=== PATIENT | male | born 1995 | race Caucasian/White ===

== ENCOUNTER 2022-10-24 09:03 | Emergency (ER) | payer OTHER, BC, SELFPAY ==
--- NOTE | 2022-10-24 09:28 | ED.WOUNDLAC ---
HPI - Wound/Laceration General Chief Complaint: Wound/Laceration Stated Complaint: head laceration Time Seen by Provider: 10/24/22 09:28 Source: patient Mode of arrival: ambulatory Limitations: no limitations History of Present Illness HPI narrative: Nehemiah is a 27-year-old male patient presenting to the clinic today with complaints of a head laceration. 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 Has a 2 cm laceration to the right mid scalp. He denies losing consciousness or any neck pain. Does have slight headache rates it about a 2-3 out of 10. Denies any dizziness, visual changes, or nausea/vomiting. Related Data Allergies Allergy/AdvReac Type Severity Reaction Status Date / Time No Known Allergies Allergy Verified 10/24/22 09:39 Review of Systems Review of Systems: Pertinent positives per HPI. Patient denies any fever, chills, rash, headache, visual changes, dizziness, cough, runny nose, sore throat, shortness of breath, chest pain, palpitations, nausea, vomiting, diarrhea, constipation, abdominal pain, or any urinary issues. PMFSH Comments At the time of my signature, I reviewed and agree with the nursing past medical, surgical, social, and family history. There is no relevant family history pertinent to the patient complaint. Exam Narrative: General: Well-developed, well nourished, in no apparent distress Head: Normocephalic, 2 cm gaped laceration to the right front mid scalp Eyes: Pupils equally round and reactive to light bilaterally, EOM intact, sclera and conjunctive clear, no discharge, lids normal Ears: TMs intact and clear, ear canals clear, no drainage, grossly hearing normal. Nose: Nares patent, no discharge, no inflammation, no sinus tenderness. Mouth: Oropharynx without lesions or masses, good dentition, MMM. Neck: Supple, trachea midline, no enlargement of anterior or posterior cervical nodes, no thyroid masses or goiter palpable. Cardio: Regular rate and rhythm, s1 and s2 normal, no murmur appreciated. Resp: Clear to auscultation bilaterally anteriorly and posteriorly, no rhonchi, rales, wheezing or rubs Course Course Emergency Course: Portions of this record may have been created with voice recognition software. Level of Care: Express Care Visit Vital Signs Vital signs: Vital signs reviewed Procedures Laceration Laceration 1: Date: 10/24/22 Site: scalp Side (If applicable): right Size (cm): 2 Description: linear Depth: simple, single layer Pre-repair: wound explored and irrigated ====== Skin Level ====== Skin layer closed with: marco a Number of sutures: 4 ====== Subcutaneous Layer ====== ====== Muscle Layer ====== ====== Tendon Layer ====== Dressing: Verbal consent obtained for laceration repair. Risk and benefits explained and patient voiced understanding. Area was cleansed with derma wash and 4 marco a placed bringing wound edges together well approximated. Patient tolerated procedure well. Triple antibiotic ointment was applied. Bleeding controlled MDM - Wound/Laceration MDM Narrative Medical decision making narrative: At the time of visit patient is resting on the exam table. Patient has a 2 cm gaped laceration to the right mid front scalp. Wound was cleansed with [place] wash. Four marco a were placed bringing wound edges together well approximated. Patient tolerated procedure well. Supportive measures were discussed and red flag symptoms were reviewed for closed head injury. Differential Diagnosis Differential diagnosis: Likely laceration, abrasion and other (Closed head injury,) Discharge Plan Discharge Clinical Impression: Laceration of scalp Qualifiers: Encounter type: initial encounter Qualified Code(s): S01.01XA - Laceration without foreign body of scalp, initial encounter Closed head injury Qualifiers: [place]
[2022-10-24 09:41] VITALS: BP 145/77; PULSE 53; RESP 16; TEMP 36.5; O2SAT 100
== END 2022-10-24 09:53 | disposition home or self-care (01) ==
PROVIDERS: Emergency Provider Nurse Practitioner Family
DX: S01.01XA Laceration without foreign body of scalp, initial encounter (principal); W22.8XXA Striking against or struck by other objects, initial encounter; S09.90XA Unspecified injury of head, initial encounter
CPT/HCPCS: 12001; 99202; G0463

== ENCOUNTER 2022-10-29 11:01 | Emergency (ER) | payer BC, SELFPAY ==
[2022-10-29 11:11] VITALS: BP 130/71; PULSE 88; RESP 18; TEMP 36.7; O2SAT 100
--- NOTE | 2022-10-29 11:21 | ED.GENADULT ---
HPI - General Adult General Chief complaint: Wound/Laceration Stated complaint: Suture Removal Time Seen by Provider: 10/29/22 11:21 Source: patient Mode of arrival: ambulatory Limitations: no limitations History of Present Illness HPI narrative: 27-year-old male patient presents to the [facility] with request to remove marco a from head. patient states he lacerated his head on and had marco a placed on Monday, about 5-6 days ago. Patient denies any complications of the wound. Patient states he has been cleaning it with shampoo. Related Data Home Medications Medication Instructions Recorded Confirmed No Home Medications 10/29/22 10/29/22 Allergies Allergy/AdvReac Type Severity Reaction Status Date / Time No Known Allergies Allergy Verified 10/29/22 11:11 Review of Systems Review of Systems: CONSTITUTIONAL: Denies fever, chills, or sweats. EYES: Denies visual changes, redness, or discharge. ENT: Denies rhinorrhea, congestion, sore throat, or otalgia. CARDIOVASCULAR: Denies chest pain, palpitations, or edema. RESPIRATORY: Denies cough or dyspnea. GASTROINTESTINAL: Denies abdominal pain, nausea, vomiting, or diarrhea. GENITOURINARY: Denies dysuria or hematuria. SKIN: Denies rash or itching. positive laceration for staple to frontal lobe of head. MUSCULOSKELETAL: Denies back pain, joint pain, or myalgia. NEUROLOGIC: Denies headache, numbness, or weakness. PSYCHIATRIC: Denies anxiety or depression. [facility] Past Medical History Medical History (Updated 10/29/22 @ 11:49 by TRENT Castro) No significant past medical history Comments At the time of my signature I agree with nursing past medical history, surgical, social, and family history. There is no relevant family history pertinent to the presenting complaint. Exam Narrative: GENERAL: Well-appearing, well-nourished, and in no acute distress. HEAD: Normocephalic, atraumatic. EYES: PERRLA and EOMI. ENT: Nares clear, no rhinorrhea or epistaxis. Mucous membranes moist. NECK: Supple. No lymphadenopathy CHEST: Clear to auscultation. No respiratory distress. HEART: Regular rate and rhythm. No murmur heard. Normal peripheral pulses. ABDOMEN: Soft, nontender, nondistended, normal active bowel sounds. EXTREMITIES: Normal range of motion. No edema. SKIN: Warm, dry, no rash. patient has 4 intact marco a noted to the frontal lobe of the head. There is no significant erythema, open wounds or signs symptoms of infection. NEURO: No focal deficits. Alert and oriented x3. Course Course Level of Care: Express Care Visit Vital Signs Vital signs: Vital Signs Temperature 36.7 C 10/29/22 11:11 Pulse Rate 88 10/29/22 11:11 Respiratory Rate 18 10/29/22 11:11 Blood Pressure 130/71 10/29/22 11:11 Pulse Oximetry 100 10/29/22 11:11 Oxygen Delivery Room Air 10/29/22 11:11 Temperature 36.7 C 10/29/22 11:11 Pulse Rate 88 10/29/22 11:11 Respiratory Rate 18 10/29/22 11:11 Blood Pressure 130/71 10/29/22 11:11 Pulse Oximetry 100 10/29/22 11:11 Oxygen Delivery Room Air 10/29/22 11:11 Vital signs reviewed. Procedures Other Procedure Procedure 1: Other Procedure: Three marco a were removed without difficulty with staple remover. One staple appeared the have wrapped around the skin on attempt to remove with staple remover. Tweezers and a fourdrinier wire weaver were required to remove the 4 stable. All the 4 staple was removed from the head. The area was cleaned with alcohol and antibiotic ointment was applied. Patient has no complaints at this time. Medical Decision Making Differential Diagnosis Differential Diagnosis: Differential diagnosis: Abscess, cellulitis, hidradenitis, laceration, puncture wound. Vital Signs Vital Signs: Vital Signs Temperature 36.7 C 10/29/22 11:11 Pulse Rate 88 10/29/22 11:11 Respiratory Rate 18 10/29/22 11:11 Blood Pressure 130/71 10/29/22 11:11 Pulse Oximet
== END 2022-10-29 11:43 | disposition home or self-care (01) ==
PROVIDERS: Emergency Provider Nurse Practitioner Family; PCP Internal Medicine
DX: S01.01XD Laceration without foreign body of scalp, subsequent encounter (principal); X58.XXXD Exposure to other specified factors, subsequent encounter
CPT/HCPCS: 99211; G0463

== ENCOUNTER 2022-11-03 09:32 | Emergency (ER) | payer BC, SELFPAY ==
[2022-11-03 09:51] VITALS: BP 127/66; PULSE 64; RESP 18; TEMP 36.4; O2SAT 100
--- NOTE | 2022-11-03 10:18 | ED.URI ---
HPI - URI/Sore Throat General Chief Complaint: Upper Respiratory Infection Stated Complaint: throat pain Time Seen by Provider: 11/03/22 09:55 Source: patient Mode of arrival: ambulatory Limitations: no limitations History of Present Illness HPI Narrative: Nehemiah is a 27-year-old male patient presenting to clinic today with complaints of left-sided sore throat x4 days. He reports he has had low-grade fever and some congestion as well. Denies any known exposure to anybody with COVID, flu, or strep MD elicited complaint: sore throat and nasal congestion Related Data Home Medications Medication Instructions Recorded Confirmed No Home Medications 10/29/22 11/03/22 Allergies Allergy/AdvReac Type Severity Reaction Status Date / Time No Known Allergies Allergy Verified 11/03/22 10:07 Review of Systems Review of Systems: Pertinent positives per HPI. Patient denies any fever, chills, rash, headache, visual changes, dizziness, cough, shortness of breath, chest pain, palpitations, nausea, vomiting, diarrhea, constipation, abdominal pain, or any urinary issues. [facility] Past Medical History Medical History No significant past medical history Comments At the time of my signature, I reviewed and agree with the nursing past medical, surgical, social, and family history. There is no relevant family history pertinent to the patient complaint. Exam Narrative: General: Well-developed, well nourished, in no apparent distress Head: Normocephalic, atraumatic Eyes: Pupils equally round and reactive to light bilaterally, EOM intact, sclera and conjunctive clear, no discharge, lids normal Ears: TMs intact and clear, ear canals clear, no drainage, grossly hearing normal. Nose: Nares patent, clear discharge, no inflammation, no sinus tenderness. Mouth: Oral pharynx mildly red with tonsillar enlarged without lesions or masses, good dentition, MMM. Neck: Supple, trachea midline,mild enlargement of anterior cervical nodes, no thyroid masses or goiter palpable. Cardio: Regular rate and rhythm, s1 and s2 normal, no murmur appreciated. Resp: Clear to auscultation bilaterally, no rhonchi, rales, wheezing or rubs Course Course Emergency Course: Portions of this record may have been created with voice recognition software. Level of Care: Express Care Visit Vital Signs Vital signs: Vital Signs Temperature 36.4 C L 11/03/22 09:51 Pulse Rate 64 11/03/22 09:51 Respiratory Rate 18 11/03/22 09:51 Blood Pressure 127/66 11/03/22 09:51 Pulse Oximetry 100 11/03/22 09:51 Oxygen Delivery Room Air 11/03/22 09:51 Temperature 36.4 C L 11/03/22 09:51 Pulse Rate 64 11/03/22 09:51 Respiratory Rate 18 11/03/22 09:51 Blood Pressure 127/66 11/03/22 09:51 Pulse Oximetry 100 11/03/22 09:51 Oxygen Delivery Room Air 11/03/22 09:51 Vital signs reviewed MDM - URI/Sore Throat MDM Narrative Medical decision making narrative: At the time of visit patient is resting comfortably on exam table. Strep screen was obtained was negative in the clinic today. We will send strep for culture. I suspect patient has viral pharyngitis. Supportive measures were discussed with the patient he voiced understanding of the discharge plan and agrees with the treatment Differential Diagnosis Differential diagnosis: Likely upper respiratory infection, otitis media, sinusitis, viral infection, bronchitis, influenza, pharyngitis and other (COVID) Discharge Plan Discharge Clinical Impression: Pharyngitis Qualifiers: Pharyngitis/tonsillitis etiology: unspecified etiology Qualified Code(s): J02.9 - Acute pharyngitis, unspecified Patient Disposition: Home, Self-Care Condition: Stable Instructions: Antibiotic Form, Pharyngitis (ED) Additional Instructions: Strep screen was negative in the clinic today. Will send for culture if this comes back positive
== END 2022-11-03 10:26 | disposition home or self-care (01) ==
PROVIDERS: Emergency Provider Nurse Practitioner Family; PCP Internal Medicine
DX: J02.9 Acute pharyngitis, unspecified (principal)
CPT/HCPCS: 87081; 87880; 99213; G0463

== ENCOUNTER 2023-09-28 08:26 | Emergency (ER) | payer BC, SELFPAY ==
--- NOTE | ~2023-09-28 | XR_ITS ---
Right Shoulder Technique: AP and axillary views were obtained. Clinical History: Pain, possible prior dislocation Findings: No fracture or dislocation is seen. Osseous alignment is anatomic. The glenohumeral and acr omioclavicular joint spaces are preserved. Soft tissues are unremarkable. Impression: Unremarkable right shoulder radiographs. Reviewed, dictated and finalized at location . Impression: Unremarkable right shoulder radiographs.
[2023-09-28 08:36] VITALS: BP 122/70; PULSE 61; RESP 18; TEMP 36.6; O2SAT 99
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
== END 2023-09-28 09:39 | disposition home or self-care (01) ==
PROVIDERS: Emergency Provider Nurse Practitioner Family; PCP Internal Medicine
DX: M25.511 Pain in right shoulder (principal); S60.512A Abrasion of left hand, initial encounter; S80.211A Abrasion, right knee, initial encounter; S60.552A Superficial foreign body of left hand, initial encounter; S80.251A Superficial foreign body, right knee, initial encounter; V18.4XXA Pedal cycle driver injured in noncollision transport accident in traffic accident, initial encounter
CPT/HCPCS: 73030; 99213; G0463